=== PATIENT | male | born 1995 | race Hispanic/Latino ===

== ENCOUNTER 2021-08-30 20:35 | Emergency (ER) | payer OTHER ==
[~2021-08-30] VITALS: Ht 170.2 cm; Wt 77.1 kg
[2021-08-30] MEDS ORDERED: IBUPROFEN600 MG PO (20:49)
== END 2021-08-30 21:24 | disposition home or self-care (01) ==
LOC: ED 20:35
DX: M70.22 Olecranon bursitis, left elbow (principal)
CPT/HCPCS: 73080; 96372; 99283-25; J1885

== ENCOUNTER 2021-09-17 19:47 | Emergency (ER) | payer OTHER ==
[~2021-09-17] VITALS: Ht 170.2 cm; Wt 88.0 kg
[~2021-09-17 19:47] MED LIST: IBUPROFEN600 MG PO
--- OUTSIDE RECORDS SUMMARY | 2021-09-17 19:54 | XMS ---
PreManage Notification: DO KIRKPATRICK Security [employer] Events No recent Security Events currently on file CRITERIA MET - [facility] - 2 Visits in 30 Days CARE PROVIDERS There are no care providers on record at this time. Sigifredo has no Care Guidelines for this patient. Elizabeth V[facility] (12 MO.) [facility] TOTAL 2 NOTE: Visits indicate total known visits. ED/C VISIT TRACKING (12 MO.) [facility] COMPLAINT: - ELBOW PAIN 08/30/2021 20:36 [facility] TYPE: Emergency COMPLAINT: - L ELBOW INJURY DIAGNOSES: - Other specified soft tissue disorders - Olecranon bursitis, left elbow INPATIENT VISIT TRACKING (12 MO.) No inpatient visits to display in this time frame [email or web address]
[2021-09-17] MEDS ORDERED: IBU600 MG PO (20:32)
== END 2021-09-17 21:14 | disposition home or self-care (01) ==
LOC: ED 19:47
DX: M25.422 Effusion, left elbow (principal); M71.122 Other infective bursitis, left elbow; Z23 Encounter for immunization
CPT/HCPCS: 90471; 90715; 99283; A9270